=== PATIENT | male | born 1935 | race Caucasian/White ===

== ENCOUNTER 2016-07-24 09:30 | Emergency (ER) | payer MEDICARE, OTHER ==
[2016-07-24 10:37] LABS: BASOPHIL 0.4 % (0-2); EOSINOPHIL 2.1 % (0-7); HCT 35.9 % (42.0-52.0); HGB 12.6 g/dl (13.2-18.0); LYMPHOCYTE 12.4 % (15-48); MCH 29.2 pg (25.0-31.0); MCHC 35.1 g/dL (32.0-36.0); MCV 83.3 fL (78.0-100.0); MONOCYTE 8.6 % (0-12); MPV 9.5 fL (6.0-9.5); NEUTROPHIL 76.5 % (41-80); PLT 343 K/uL (150-400); RBC 4.31 M/uL (4.70-6.00); RDW 13.7 % (11.5-14.0); WBC 7.2 K/uL (4.0-10.5)
[2016-07-24 10:37] LABS: BILIRUBIN NEGATIVE (NEGATIVE); BLOOD TRACE-INTACT Ery/uL (NEGATIVE); CLARITY CLEAR (CLEAR); COLOR YELLOW (YELLOW); GLUCOSE (U) NORMAL (NORMAL); KETONE (U) NEGATIVE (NEGATIVE); LEUKOCYTES 1+ Leu/uL (NEGATIVE); NITRITE NEGATIVE (NEGATIVE); PROTEIN NEGATIVE (NEGATIVE); SPECIFIC GRAVITY <=1.005 (1.001-1.030); UROBILINOGEN 0.2 mg/dL (0.2-1.0); pH 6.5 (5.0-9.0)
[2016-07-24 10:54] LABS: INR 1.01 (0.9-1.2); PROTHROMBIN TIME 12.9 SECONDS (11.7-14.0); PTT 30.6 SECONDS (23.2-31.4)
[2016-07-24 10:58] LABS: BACTERIA 1+
[2016-07-24 11:05] LABS: ALBUMIN 3.8 g/dL (3.4-4.8); BILIRUBIN - TOTAL 0.4 mg/dL (0.1-1.0); GLOBULIN (CALCULATION) 2.7 g/dL (2.2-4.2); POTASSIUM 4.4 mmol/L (3.5-5.1); TOTAL PROTEIN 6.5 g/dL (6.4-8.3)
== END 2016-07-24 11:54 | disposition home or self-care (01) ==
LOC: FER 09:30
PROVIDERS: Emergency Medicine
DX: K57.31 Diverticulosis of large intestine without perforation or abscess with bleeding (principal); I45.2 Bifascicular block; I10 Essential (primary) hypertension; Z87.891 Personal history of nicotine dependence; Z87.19 Personal history of other diseases of the digestive system; Z79.899 Other long term (current) drug therapy; Z98.890 Other specified postprocedural states
CPT/HCPCS: 36415; 80053; 81001; 85025; 85610; 85730; 93005

== ENCOUNTER 2020-07-24 18:35 | Emergency (ER) | payer MEDICARE, OTHER ==
[~2020-07-24 18:35] MED LIST: ALLOPURINOL 30300 MG PO; AMLODIPINE BESYL5 MG PO; INCRUSE ELLI62.5 MCG INH; LEVOTHYROXINE100 MCG PO; LISINOPRIL30 MG PO; NORCO 5-325 TA1 EACH PO; PERFOROMIS20 MCG/2 M INH; ZOFRAN4 MG PO
[2020-07-24 19:29] LABS: BASOPHIL 0.7 % (0-2); EOSINOPHIL 6.3 % (0-7); HCT 33.5 % (42.0-52.0); HGB 11.5 g/dl (13.2-18.0); LYMPHOCYTE 12.2 % (15-48); MCH 29.6 pg (25.0-31.0); MCHC 34.3 g/dL (32.0-36.0); MCV 86.1 fL (78.0-100.0); MONOCYTE 8.3 % (0-12); MPV 8.8 fL (6.0-9.5); NEUTROPHIL 72.2 % (41-80); NRBC 0; PLT 332 K/uL (150-400); RBC 3.89 M/uL (4.70-6.00); RDW 14.4 % (11.5-14.0); WBC 10.4 K/uL (4.0-10.5)
[2020-07-24 19:55] LABS: ALBUMIN 3.5 g/dL (3.4-5.0); BILIRUBIN - DIRECT 0.1 mg/dL (0.00-0.20); BILIRUBIN - TOTAL 0.3 mg/dL (0.2-1.0); BUN/CREAT RATIO (CALC) 18.5 RATIO; CREATININE 1.19 mg/dL (0.67-1.17); GLOBULIN (CALCULATION) 3.3 g/dL; POTASSIUM 4.2 mmol/L (3.5-5.1); TOTAL PROTEIN 6.8 g/dL (6.4-8.2)
[2020-07-24] MEDS ORDERED: TESSALON PERLE100 M1 PO (22:22)
[2020-07-24] MEDS ORDERED: MEDROL 4MG DOSEP4 MG PO (22:22)
[2020-07-24] MEDS ORDERED: LEVAQUIN750 MG PO (22:22)
[2020-07-24] MEDS ORDERED: DUONEB 2.5-0.5M1 AMP INH (22:42)
== END 2020-07-24 22:43 | disposition home or self-care (01) ==
LOC: FER 18:35
PROVIDERS: Emergency Medicine Emergency Medical Services; Nurse Practitioner Family
DX: J44.0 Chronic obstructive pulmonary disease with (acute) lower respiratory infection (principal); J20.9 Acute bronchitis, unspecified; J44.1 Chronic obstructive pulmonary disease with (acute) exacerbation; Z20.822 Contact with and (suspected) exposure to COVID-19; G30.9 Alzheimer's disease, unspecified; Z87.01 Personal history of pneumonia (recurrent)
CPT/HCPCS: 36415; 36600; 71045; 71275; 80048; 80076; 82803; 83605; 83880; 84484; 85025; 85379; 87040; 93005; J1100; J1940; Q9967; U0002